=== PATIENT | male | born 1955 | race African-American/Black ===

== ENCOUNTER 2019-09-14 12:37 | Emergency (ER) | payer OTHER ==
[~2019-09-14 12:37] MED LIST: Caclcium Chloride 10% INJ SYR IV ONE; SODIUM CHL 0.9% 250 ML BAG ONE
[2019-09-14] MEDS ORDERED: NA CHLORIDE 0.9% 0 ML ONE (13:16)
[2019-09-14 13:40] LABS: Absolute Lymphocytes (CBC) 3.4 K/uL (0.7-4.9); Basophils % 0.5 % (0-1.3); Lymphocytes % 27.6 % (15.3-44.8); MPV 11.5 fL (7.6-11.3); RBC Red Blood Cell Count 5.13 M/uL (4.33-5.43)
[2019-09-14] MEDS ORDERED: ONDANSETRON 4 MG (ODT) TAB ONE (13:40)
[2019-09-14] MEDS ORDERED: DOPAMINE/D5W 400 MG/250 ML BAG IV ONE ×2 (13:42→17:20)
[2019-09-14] MEDS ORDERED: NA CHLORIDE 0.9% 500 ML ONE ×4 (13:43→17:20)
--- NOTE | 2019-09-14 13:49 | EDPHYS ---
Physician Documentation [facility] Name: Suhas Wong Age: 63 yrs Sex: Male : 1955 Arrival Date: 09/14/2019 Time: 12:40 Bed 3 Private MD: ED Physician Mikie Rowe HPI: 09/14 13:15 This 63 yrs old Black Male presents to ER via EMS with complaints of Abdominal Pain, pm1 Nausea/Vomiting/Diarrhea. 13:15 The patient presents with abdominal pain. Onset: The symptoms/episode began/occurred pm1 this morning. The symptoms do not radiate. Associated signs and symptoms: Pertinent positives: vomiting x 2 and diarrhea x 10 that was not bloody. Watery with food initially. Bloody diarrhea onset in the ER with bowel movement here at bedside, Pertinent negatives: dysuria, fever. The symptoms are described as achy. Modifying factors: The symptoms are alleviated by nothing, the symptoms are aggravated by nothing. Severity of pain: in the emergency department the pain is actually worse. Greater than 10 years ago he had a perforated ulcer. Patient was in the [facility] prior to arrival. Historical: - Allergies: 12:54 No Known Allergies; iw - Home Meds: 12:54 lisinopril 5 mg Oral tab 1 tab once daily [Active]; pravastatin 10 mg oral tab 1 tab iw once daily [Active]; - PMHx: 12:54 Hyperlipidemia; Hypertension; iw - PSHx: 12:54 ulcer; iw - Immunization history:: Adult Immunizations up to date. - Coronavirus screen:: The patient has NOT traveled to [place] in the past 14 days. Proceed with normal triage process as indicated. - Social history:: Smoking status: Patient denies any tobacco usage or history of. - Ebola Screening: : Patient negative for fever greater than or equal to 101.5 degrees Fahrenheit, and additional compatible Ebola Virus Disease symptoms Patient denies exposure to infectious person Patient denies travel to an Ebola-affected area in the 21 days before illness onset No symptoms or risks identified at this time. ROS: 13:15 Constitutional: Negative for fever, chills, and weight loss, Neck: Negative for injury, pm1 pain, and swelling, Cardiovascular: Negative for chest pain, palpitations, and edema, Respiratory: Negative for shortness of breath, cough, wheezing, and pleuritic chest pain. 13:15 Back: Negative for injury and pain, MS/Extremity: Negative for injury and deformity, Skin: Negative for injury, rash, and discoloration. 13:15 Abdomen/GI: Positive for abdominal pain, nausea, vomiting, and diarrhea, Negative for constipation. 13:15 All other systems are negative. Exam: 13:15 Head/Face: Normocephalic, atraumatic. Eyes: Pupils equal round and reactive to light, pm1 extra-ocular motions intact. Lids and lashes normal. Conjunctiva and sclera are non-icteric and not injected. Cornea within normal limits. Periorbital areas with no swelling, redness, or edema. Chest/axilla: Normal chest wall appearance and motion. Nontender with no deformity. No lesions are appreciated. Cardiovascular: Regular rate and rhythm with a normal S1 and S2. No gallops, murmurs, or rubs. Normal PMI, no JVD. No pulse deficits. Respiratory: Lungs have equal breath sounds bilaterally, clear to auscultation and percussion. No rales, rhonchi or wheezes noted. No increased work of breathing, no retractions or nasal flaring. 13:15 Back: No spinal tenderness. No costovertebral tenderness. Full range of motion. Skin: Warm, dry with normal turgor. Normal color with no rashes, no lesions, and no evidence of cellulitis. MS/ Extremity: Pulses equal, no cyanosis. Neurovascular intact. Full, normal range of motion. 13:15 Constitutional: The patient appears alert, awake, non-toxic, well developed, well hydrated, well groomed, well nourished, obviously ill. 13:15 Abdomen/GI: Inspection: abdomen appears normal, Bowel sounds: normal, Palpation: soft, mild abdominal tenderness, in the left lower quadrant, mass, is not appreciated, rebound tenderness, is not appreciated, Gross amount of bright red blood in the bed side commode approximately 500 mL. 13:15 Neuro: Orientation: is normal, Mentation: is normal, Motor: is normal, moves all fours. Vital Signs: 12:40 BP 100 / 68; Pulse 81; Resp 17; Temp 96.5(TE); Pulse Ox 99% ; rb1 12:50 BP 100 / 68; Pulse 80; Resp 16; Pulse Ox 98% on R/A; Weight 80.29 kg; Height 5 ft. 7 iw in. (170.18 cm); Pain 8/10; 13:30 BP 64 / 31; Pulse 103; Resp 14 S; Pulse Ox 98% on R/A; iw 13:40 BP 51 / 34; Pulse 92; Resp 14 S; Pulse Ox 98% on R/A; iw 13:56 BP 73 / 45; Pulse 100; Resp 16; Pulse Ox 99% on R/A; iw 14:13 BP 90 / 55; Pulse 103; Resp 16 S; Pulse Ox 99% ; iw 14:25 BP 77 / 29; Pulse 101; Resp 36; Pulse Ox 99% ; sv 14:53 BP 66 / 49; Pulse 101; Resp 27; Pulse Ox 94% on R/A; sv 15:00 BP 67 / 47; Pulse 99; Resp 26; Pulse Ox 97% on 2 lpm NC; sv 15:05 BP 66 / 28; Pulse 97; Resp 24; Pulse Ox 95% on 2 lpm NC; sv 15:25 BP 75 / 41; Pulse 98; Resp 23; Temp 92.2(A); Pulse Ox 96% on 2 lpm NC; sv 16:00 BP 102 / 81; Pulse 103; iw 16:05 BP 99 / 75; Pulse 110; Resp 25; Pulse Ox 95% on 2 lpm NC; sv 16:15 BP 85 / 63; Pulse 106; Resp 24; Pulse Ox 95% on 2 lpm NC; sv 16:30 BP 82 / 44; Pulse 105; Resp 33; Pulse Ox 94% on 2 lpm NC; sv 16:38 BP 80 / 43; Pulse 106; Resp 27; Pulse Ox 94% on 15% BVM; sv 16:45 BP 64 / 29; Pulse 104; Resp 17; Pulse Ox 100% on 100% FiO2 ETT vent; sv 16:50 BP 74 / 25; Pulse 108; Resp 15; Pulse Ox 100% on 100% FiO2 ETT vent; sv 17:00 BP 69 / 48; Pulse 107; Resp 14; Pulse Ox 96% on 2 lpm NC; sv 17:15 BP 81 / 55; Pulse 107; Resp 14; Pulse Ox 98% on 100% FiO2 ETT vent; sv 17:35 BP 59 / 35; Pulse 105; Resp 16; Pulse Ox 100% on 100% FiO2 ETT vent; sv 17:40 BP 133 / 65; Pulse 104; Resp 18; Pulse Ox 100% on 100% FiO2 ETT vent; sv 17:45 BP 128 / 84; Pulse 92; Resp 18; Pulse Ox 100% on 100% FiO2 ETT vent; sv 12:50 Body Mass Index 27.72 (80.29 kg, 170.18 cm) iw Procedures: 13:49 Central Line: the site was prepped with Betadine, in sterile fashion, a triple lumen rn catheter was inserted, in the right femoral vein, in 1 attempts. placement was verified, by blood return, the site was dressed with Tegaderm, using sterile technique, the patient tolerated the procedure, well. 16:43 Intubation: Ventilated with 100% NRB prior to procedure. O2 saturation prior to pattern finisher was 85 %. Intubated orally using Glidescope with 7.5 mm ETT. Successful on second attempt. Cricoid pressure applied during procedure. Tube secured measured 24 cm at teeth. Placement verified by CO2 detector with (+) color change, auscultating bilateral breath sounds, O2 saturation after procedure was 92 %. Patient tolerated well. MDM: 13:10 Patient medically screened. pm1 13:20 Data reviewed: vital signs. Data interpreted: Pulse oximetry: on room air is 98 %. pm1 Interpretation: normal. 13:47 Counseling: I had a detailed discussion with the patient and/or guardian regarding: the pm1 historical points, exam findings, and any diagnostic results supporting the discharge/admit diagnosis, the need to transfer to another facility, [facility] does not immediately have the required specialist. 13:49 ED course: Pt hypotensive, just began bleeding bright red blood per rectum upon rn arrival, dopamine and uncrossmatched blood started due to hypotension and tachycardia, arranging emergent transfer to [facility] given no GI here. . 15:20 Physician consultation: [facility] ICU [facility] Ronnie was contacted at 15:15, regarding pm1 regarding transfer, patient's condition, Discussed the current labs available at time, CBC and Cr, radiologist impression, current medications administered, and current vital signs. He does not feel the patient is stable enough for transfer and may need surgical evaluation and treatment in the hospital here. Will take the patient once the patient's blood pressure and vital signs have stabilized. 16:34 Physician consultation: [facility] ICU [facility] Setter Trujillo regarding patient's condition, pm1 Improved blood pressure 102/81 and 99/75 after addressing Hypocalcemia, low bicarb level, and additional unit of blood. Dr. Rowe will intubate the patient to protect airway for transfer. Will accept the patient. 17:23 ED course: ETT pulled back 2 cm.. rn 09/14 13:13 Order name: Type And Screen pm1 09/14 13:13 Order name: Basic Metabolic Panel pm1 09/14 13:13 Order name: CBC with Diff pm1 09/14 13:13 Order name: Creatinine for Radiology pm1 09/14 13:13 Order name: Hepatic Function pm1 09/14 13:13 Order name: Lipase 1 09/14 13:42 Order name: CBC with Automated Diff; Complete Time: 14:56 EDCT 09/14 14:09 Order name: CBC with Diff pa 09/14 14:13 Order name: PT-INR rn 09/14 14:13 Order name: Ptt, Activated rn 09/14 14:49 Order name: Manual Differential; Complete Time: 14:56 EDCT 09/14 15:01 Order name: Creatinine (Radiology Only); Complete Time: 15:04 EDCT 09/14 15:17 Order name: Basic Metabolic Panel; Complete Time: 15:18 EDCT 09/14 15:17 Order name: Liver (Hepatic) Function; Complete Time: 15:18 EDCT 09/14 13:13 Order name: CT Abd/Pelvis - IV Contrast Only 1 09/14 14:14 Order name: CT Abd/Pelvis - Without Contrast [facility] 09/14 15:12 Order name: CT; Complete Time: 15:18 EDCT 09/14 15:17 Order name: Lipase; Complete Time: 15:18 EDCT 09/14 16:02 Order name: ABO/RH typing EDCT 09/14 16:02 Order name: Antibody Screen EDCT 09/14 16:02 Order name: ABO/RH no charge; Complete Time: 16:04 EDCT 09/14 17:04 Order name: Chest Single View XRAY 09/14 13:13 Order name: IV Saline Lock; Complete Time: 14:26 pm1 09/14 13:13 Order name: Labs collected and sent; Complete Time: 14:26 pm1 09/14 13:24 Order name: NPO; Complete Time: 13:51 pm1 09/14 13:45 Order name: Transfuse; Complete Time: 14:26 pm1 09/14 15:01 Order name: Transfuse; Complete Time: 15:36 pm1 Administered Medications: 13:10 Drug: NS 0.9% 1000 ml Route: IV; Rate: 1000 ml; Site: right antecubital; iw 14:00 Follow up: Response: No adverse reaction; IV Status: Completed infusion; IV Intake: sv 1000ml 13:23 Not Given (Physician Discretion): Octreotide Infusion (50 mcg/hr) - (Octreotide 500 pm1 mcg, NS 0.9% 500 ml) IV at 50 ml/hr continuous 13:24 Not Given (Physician Discretion): Octreotide 50 mcg IV at calculated rate once pm1 13:45 Drug: Dopamine drip 5 mcg/kg/min - (DOPamine 400 mg, D5W 250 ml) Route: IV; Rate: iw calculated rate; Site: right femoral; 14:46 Follow up: Rate change 25 calculated rate sv 15:00 Follow up: Rate change 30 calculated rate sv 18:18 Follow up: Response: No adverse reaction; IV Status: Infusion continued upon transfer sv 13:48 Drug: ProTONIX 40 mg Route: IVP; Site: right femoral; iw 14:00 Follow up: Response: No adverse reaction sv 13:48 Drug: Zofran 4 mg Route: IVP; Site: right femoral; iw 14:00 Follow up: Response: No adverse reaction sv 13:52 Drug: NS 0.9% 1000 ml Route: IV; Rate: 1000 ml; Site: right femoral; iw 14:30 Follow up: Response: No adverse reaction; IV Status: Completed infusion; IV Intake: sv 1000ml 14:05 Drug: ProTONIX 8 mg/hr Route: IV; Rate: 25 ml/hr; Site: right femoral; ah 18:19 Follow up: Response: No adverse reaction; IV Status: Infusion continued upon transfer sv 14:25 Drug: Vasopressin 0.02 units/min {Note: started at 0.04 units/min.} Route: IV; Rate: sv calculated rate; Site: right femoral; 18:18 Follow up: Response: No adverse reaction; IV Status: Infusion continued upon transfer sv 15:07 Drug: Levophed (4 mg/250 mL D5W 4 mcg/min {Note: started at 10 mcg/min.} Route: IV; sv Rate: calculated rate; Site: right femoral; 15:16 Follow up: Rate change 20 calculated rate sv 15:35 Follow up: Rate change 30 calculated rate sv 18:17 Follow up: Response: No adverse reaction; IV Status: Infusion continued upon transfer sv 15:50 Drug: Calcium Gluconate 2 grams Route: IVPB; Infused Over: 60 mins; Site: right femoral;sv 16:05 Follow up: Response: No adverse reaction; IV Status: Completed infusion; IV Intake: sv 100ml 15:58 Drug: D5W 1000 ml, Sodium Bicarbonate 150 mEq Route: IV; Rate: 150 ml/hr; Site: left sv hand; 18:15 Follow up: Response: No adverse reaction; IV Status: Infusion continued upon transfer sv 16:33 Drug: Ketamine 100 mg Route: IVP; Site: right femoral; sv 17:00 Follow up: Response: No adverse reaction sv 16:34 Drug: Rocuronium 50 mg Route: IVP; Site: right femoral; sv 17:00 Follow up: Response: No adverse reaction sv 17:01 Drug: Zosyn 3.375 grams Route: IVPB; Infused Over: 60 mins; Site: right femoral; sv 18:00 Follow up: Response: No adverse reaction; IV Status: Completed infusion; IV Intake: sv 100ml 17:40 Drug: Calcium Chloride 2 grams Route: IVP; Site: right femoral; sv 18:00 Follow up: Response: No adverse reaction sv Disposition: 09/15 07:01 Co-signature as Attending Physician, Mikie Rowe MD. rn Disposition: 09/14/19 13:48 Transfer ordered to [facility]. Diagnosis is Gastrointestinal hemorrhage, unspecified. - Reason for transfer: Higher level of care. - Accepting physician is [facility]. - Condition is Fair. - Problem is new. - Symptoms have improved. Signatures: Dispatcher [employer] Yolis Holloway RN RN sv Williams, Irene, RN RN iw Nieto, Roman, MD MD rn Barber, Rebecca, RN RN rb1 Marinas, Patrick, NP DORMITORY KEEPER pm1 Jazmin Jacinto RN RN Corrections: (The following items were deleted from the chart) 09/14 18:21 13:48 09/14/2019 13:48 Transfer ordered to [facility]. Diagnosis is Gastrointestinal sv hemorrhage, unspecified. Reason for transfer: Higher level of care. Accepting physician is [facility]. Condition is Fair. Problem is new. Symptoms have improved. pm1
--- NOTE | 2019-09-14 13:49 | ER ---
Nurse's Notes [facility] Name: Suhas Wong Age: 63 yrs Sex: Male : 1955 Arrival Date: 09/14/2019 Time: 12:40 Bed 3 Private MD: Diagnosis: Gastrointestinal hemorrhage, unspecified Presentation: 09/14 12:41 Presenting complaint: EMS states: pt c/o generalized abd pain, vomiting and diarrhea iw since this morning, diarrhea X 10, initially hypotensive at 80's systolic while in [facility]. IV fluids started pressure up to 106 per EMS. 12:51 Transition of care: patient was not received from another setting of care. Onset of iw symptoms was September 14, 2019. Risk Assessment: Do you want to hurt yourself or someone else? Patient reports no desire to harm self or others. Initial Sepsis Screen: Does the patient meet any 2 criteria? No. Patient's initial sepsis screen is negative. Does the patient have a suspected source of infection? No. Patient's initial sepsis screen is negative. 12:51 Method Of Arrival: [facility] iw 12:51 Acuity: ZOEY 3 iw 12:57 Acuity: ZOEY 2 iw 12:57 Care prior to arrival: Medication(s) given: Normal saline infusion, 1.5 L NS zofran 8 iw mg, Fentanyl 75 mcg IVP IV initiated. 18 GA, in the right antecubital area. Historical: - Allergies: 12:54 No Known Allergies; iw - Home Meds: 12:54 lisinopril 5 mg Oral tab 1 tab once daily [Active]; pravastatin 10 mg oral tab 1 tab iw once daily [Active]; - PMHx: 12:54 Hyperlipidemia; Hypertension; iw - PSHx: 12:54 ulcer; iw - Immunization history:: Adult Immunizations up to date. - Coronavirus screen:: The patient has NOT traveled to [place] in the past 14 days. Proceed with normal triage process as indicated. - Social history:: Smoking status: Patient denies any tobacco usage or history of. - Ebola Screening: : Patient negative for fever greater than or equal to 101.5 degrees Fahrenheit, and additional compatible Ebola Virus Disease symptoms Patient denies exposure to infectious person Patient denies travel to an Ebola-affected area in the 21 days before illness onset No symptoms or risks identified at this time. Screenin:30 Abuse screen: Denies threats or abuse. Denies injuries from another. Nutritional iw screening: No deficits noted. Tuberculosis screening: No symptoms or risk factors identified. Fall Risk IV access (20 points). Assessment: 12:45 General: Appears in no apparent distress. comfortable, Behavior is calm, cooperative. iw Pain: Complains of pain in abdomen Pain currently is 7 out of 10 on a pain scale. Neuro: Level of Consciousness is awake, alert, obeys commands, Oriented to person, place, time, situation. Cardiovascular: Denies chest pain, Patient's skin is warm and dry. Respiratory: Respiratory effort is even, unlabored. GI: Abdomen is flat, non-distended, Bowel sounds Abd is soft X 4 quads Reports lower abdominal pain, upper abdominal pain, diarrhea, nausea. Derm: Skin is intact. Musculoskeletal: Range of motion: intact in all extremities. 13:15 Reassessment: pt had a large amount of liquid stool, with bright red blood, approx 500 iw mL, pt placed back in stretcher, BP=52/42 HR=93, Drew INSURANCE CUSTOMER SERVICE SPECIALIST notified. 13:25 Reassessment: NS infusing to RAC. iw 13:30 Reassessment: pt had another large loose BM with bright red blood, approx 300 mL in bed.iw 13:40 Reassessment: set up for central line placement with Dr. Rowe at beside. iw 13:43 Reassessment: 1st unit O neg uncrossed blood started, verified with RAMONITA, RN. iw 13:52 Reassessment: 2nd unit O neg uncrossed blood started to central line, verified with terrell SHIPMAN RN. 13:56 Reassessment: pt transported from ER bed 17 to ER bed 3, with 2 units of blood iw infusing, dopamine infusing, pt BP up to 73/45 , GW=950. 14:00 General: Appears distressed, uncomfortable, Behavior is cooperative, flat. Neuro: Level sv of Consciousness is obeys commands, lethargic, Oriented to person, place. Cardiovascular: Rhythm is sinus tachycardia. Respiratory: Airway is patent Respiratory effort is even, unlabored, Respiratory pattern is regular, symmetrical. GI: Reports diarrhea, bloody stool. Derm: Skin is intact, Skin is pale. 14:16 Reassessment: 1st unit of PRBCs complete, see blood transfusion sheet. sv 14:27 Reassessment: 2nd unit of PRBCs complete, see blood transfusion sheet. sv 15:00 Reassessment: Patient appears in no apparent distress at this time. No changes from sv previously documented assessment. 15:30 Reassessment: 3rd unit of PRBCs of uncrossed blood started, verified with Jazmin BALDERAS. See sv blood transfusion sheet. 16:00 Reassessment: Patient appears in no apparent distress at this time. No changes from sv previously documented assessment. 16:20 Reassessment: Patient and/or family updated on plan of care and expected duration. Pain sv level reassessed. Informed Dr Rowe pt's respiratory effort has increased and is becoming more hypoxic. 16:30 Respiratory: Respiratory effort is even, labored, Respiratory pattern is symmetrical, sv tachypnea. 17:00 Reassessment: Patient appears in no apparent distress at this time. Pt remains sv intubated. 17:35 Reassessment: [facility] here at bedside. sv 17:40 Reassessment: 4th unit of uncrossed PRBCs started and verified with Jazmin BALDERAS. See blood sv transfusion sheet. 17:45 Reassessment: Transfer of care done with Juni BALDERAS with [facility] for the 4th sv unit of PRBC. See blood transfusion sheet. 18:10 Reassessment: Patient appears in no apparent distress at this time. Pt remains sv intubated. Vital Signs: 12:40 BP 100 / 68; Pulse 81; Resp 17; Temp 96.5(TE); Pulse Ox 99% ; rb1 12:50 BP 100 / 68; Pulse 80; Resp 16; Pulse Ox 98% on R/A; Weight 80.29 kg; Height 5 ft. 7 iw in. (170.18 cm); Pain 8/10; 13:30 BP 64 / 31; Pulse 103; Resp 14 S; Pulse Ox 98% on R/A; iw 13:40 BP 51 / 34; Pulse 92; Resp 14 S; Pulse Ox 98% on R/A; iw 13:56 BP 73 / 45; Pulse 100; Resp 16; Pulse Ox 99% on R/A; iw 14:13 BP 90 / 55; Pulse 103; Resp 16 S; Pulse Ox 99% ; iw 14:25 BP 77 / 29; Pulse 101; Resp 36; Pulse Ox 99% ; sv 14:53 BP 66 / 49; Pulse 101; Resp 27; Pulse Ox 94% on R/A; sv 15:00 BP 67 / 47; Pulse 99; Resp 26; Pulse Ox 97% on 2 lpm NC; sv 15:05 BP 66 / 28; Pulse 97; Resp 24; Pulse Ox 95% on 2 lpm NC; sv 15:25 BP 75 / 41; Pulse 98; Resp 23; Temp 92.2(A); Pulse Ox 96% on 2 lpm NC; sv 16:00 BP 102 / 81; Pulse 103; iw 16:05 BP 99 / 75; Pulse 110; Resp 25; Pulse Ox 95% on 2 lpm NC; sv 16:15 BP 85 / 63; Pulse 106; Resp 24; Pulse Ox 95% on 2 lpm NC; sv 16:30 BP 82 / 44; Pulse 105; Resp 33; Pulse Ox 94% on 2 lpm NC; sv 16:38 BP 80 / 43; Pulse 106; Resp 27; Pulse Ox 94% on 15% BVM; sv 16:45 BP 64 / 29; Pulse 104; Resp 17; Pulse Ox 100% on 100% FiO2 ETT vent; sv 16:50 BP 74 / 25; Pulse 108; Resp 15; Pulse Ox 100% on 100% FiO2 ETT vent; sv 17:00 BP 69 / 48; Pulse 107; Resp 14; Pulse Ox 96% on 2 lpm NC; sv 17:15 BP 81 / 55; Pulse 107; Resp 14; Pulse Ox 98% on 100% FiO2 ETT vent; sv 17:35 BP 59 / 35; Pulse 105; Resp 16; Pulse Ox 100% on 100% FiO2 ETT vent; sv 17:40 BP 133 / 65; Pulse 104; Resp 18; Pulse Ox 100% on 100% FiO2 ETT vent; sv 17:45 BP 128 / 84; Pulse 92; Resp 18; Pulse Ox 100% on 100% FiO2 ETT vent; sv 12:50 Body Mass Index 27.72 (80.29 kg, 170.18 cm) iw ED Course: 12:40 Patient arrived in ED. iw 12:45 Maintain EMS IV. Dressing intact. Site clean \T\ dry. Gauge \T\ site: 20G R AC. sv 12:47 Drew Starr NP is PHCP. pm1 12:47 Mikie Rowe MD is Attending Physician. pm1 12:50 Hayde Thomas RN is Primary Nurse. rb1 12:53 Triage completed. iw 12:54 Arm band placed on. iw 13:43 Assisted provider with central line placement. Set up central line tray. Double lumen iw lined placed in right femoral. Line placed by Mikie Rowe MD Placement verified by blood return, Dressed with Tape, Tegaderm, Blood was collected. Patient tolerated well. Before procedure, did Practitioner(s) obtain informed consent? Yes. Was handwashing/sanitizing done immediately prior to procedure? Yes. Was procedure site sterilized? Yes, with chlorhexidine. Was blood aspirated from each lumen? Yes. 14:00 Report received from Kary BALDERAS. sv 14:00 Patient has correct armband on for positive identification. Placed in gown. Bed in low sv position. Side rails up X2. radiation monitor on. Pulse ox on. NIBP on. 14:04 initiated transfer at this time with [facility]. ms 14:09 Primary Nurse role handed off by Hayde Thomas RN sv 14:09 Yolis Calloway RN is Primary Nurse. sv 14:45 Patient moved back from CT. sv 14:49 CT completed. Patient tolerated procedure well. Patient moved back from CT. bq 15:50 Inserted saline lock: 20 gauge in left hand, using aseptic technique. Flushed left hand sv with 5 ml normal saline. 16:40 Assisted provider with intubation using 7.5 mm ETT via oral route. ET tube secured at sv 25cm at the teeth. Set up intubation tray. Intubated by Mikie Rowe MD Placement verified by CXR, CO2 detector w/ + color change, auscultating bilateral breath sounds. 16:51 NGT: inserted 14 Fr. via right nare. other done by Jazmin BALDERAS verified placement of air sv over stomach, to intermittent suction. 18:00 One-on-one care X 240 minutes. sv 18:10 Patient transferred, IV remains in place. intact. sv 18:57 Primary Nurse role handed off by Yolis Calloway RN sv Administered Medications: 13:10 Drug: NS 0.9% 1000 ml Route: IV; Rate: 1000 ml; Site: right antecubital; iw 14:00 Follow up: Response: No adverse reaction; IV Status: Completed infusion; IV Intake: sv 1000ml 13:23 Not Given (Physician Discretion): Octreotide Infusion (50 mcg/hr) - (Octreotide 500 pm1 mcg, NS 0.9% 500 ml) IV at 50 ml/hr continuous 13:24 Not Given (Physician Discretion): Octreotide 50 mcg IV at calculated rate once pm1 13:45 Drug: Dopamine drip 5 mcg/kg/min - (DOPamine 400 mg, D5W 250 ml) Route: IV; Rate: iw calculated rate; Site: right femoral; 14:46 Follow up: Rate change 25 calculated rate sv 15:00 Follow up: Rate change 30 calculated rate sv 18:18 Follow up: Response: No adverse reaction; IV Status: Infusion continued upon transfer sv 13:48 Drug: ProTONIX 40 mg Route: IVP; Site: right femoral; iw 14:00 Follow up: Response: No adverse reaction sv 13:48 Drug: Zofran 4 mg Route: IVP; Site: right femoral; iw 14:00 Follow up: Response: No adverse reaction sv 13:52 Drug: NS 0.9% 1000 ml Route: IV; Rate: 1000 ml; Site: right femoral; iw 14:30 Follow up: Response: No adverse reaction; IV Status: Completed infusion; IV Intake: sv 1000ml 14:05 Drug: ProTONIX 8 mg/hr Route: IV; Rate: 25 ml/hr; Site: right femoral; ah 18:19 Follow up: Response: No adverse reaction; IV Status: Infusion continued upon transfer sv 14:25 Drug: Vasopressin 0.02 units/min {Note: started at 0.04 units/min.} Route: IV; Rate: sv calculated rate; Site: right femoral; 18:18 Follow up: Response: No adverse reaction; IV Status: Infusion continued upon transfer sv 15:07 Drug: Levophed (4 mg/250 mL D5W 4 mcg/min {Note: started at 10 mcg/min.} Route: IV; sv Rate: calculated rate; Site: right femoral; 15:16 Follow up: Rate change 20 calculated rate sv 15:35 Follow up: Rate change 30 calculated rate sv 18:17 Follow up: Response: No adverse reaction; IV Status: Infusion continued upon transfer sv 15:50 Drug: Calcium Gluconate 2 grams Route: IVPB; Infused Over: 60 mins; Site: right femoral;sv 16:05 Follow up: Response: No adverse reaction; IV Status: Completed infusion; IV Intake: sv 100ml 15:58 Drug: D5W 1000 ml, Sodium Bicarbonate 150 mEq Route: IV; Rate: 150 ml/hr; Site: left sv hand; 18:15 Follow up: Response: No adverse reaction; IV Status: Infusion continued upon transfer sv 16:33 Drug: Ketamine 100 mg Route: IVP; Site: right femoral; sv 17:00 Follow up: Response: No adverse reaction sv 16:34 Drug: Rocuronium 50 mg Route: IVP; Site: right femoral; sv 17:00 Follow up: Response: No adverse reaction sv 17:01 Drug: Zosyn 3.375 grams Route: IVPB; Infused Over: 60 mins; Site: right femoral; sv 18:00 Follow up: Response: No adverse reaction; IV Status: Completed infusion; IV Intake: sv 100ml 17:40 Drug: Calcium Chloride 2 grams Route: IVP; Site: right femoral; sv 18:00 Follow up: Response: No adverse reaction sv Intake: 14:00 IV: 1000ml; Total: 1000ml. sv 14:30 IV: 1000ml; Total: 2000ml. sv 16:05 IV: 100ml; Total: 2100ml. sv 18:00 IV: 100ml; Total: 2200ml. sv Output: 17:15 Gastric: 300ml (NGT); Total: 300ml. sv Outcome: 13:48 ER care complete, transfer ordered by . pm1 17:40 Transferred by helicopter to [facility], Transfer form completed. X-rays sent sv w/ patient. Note: Report given to Juni BALDERAS from [facility] 17:40 critical 17:40 Instructed on the need for transfer. 18:21 Patient left the ED. sv Signatures: Yolis Calloway RN SHERRIE sv Catrina Gonzalez Irene, RN RN Kiah Weldon ms Hayde Thomas, RN SHERRIE [facility] Drew Starr, [employer]ICE SPECIALIST pm1 Jazmin Jacinto RN RN Corrections: (The following items were deleted from the chart) 12:58 12:51 Care prior to arrival: None. iw iw 14:21 14:19 Reassessment: NS infusing to RAC, iw iw 15:08 14:25 Vasopressin 0.02 units/min IV at calculated rate in right femoral sv sv 18:09 16:38 BP 80 / 43; Pulse 106bpm; Resp 27bpm; Pulse Ox 94% 2 lpm Nasal Cannula; sv sv : 16:45 BP 64 / 29; Pulse 104bpm; Resp 17bpm; Pulse Ox 100% 2 lpm Nasal Cannula; sv sv : 16:50 BP 74 / 25; Pulse 108bpm; Resp 15bpm; Pulse Ox 100% 2 lpm Nasal Cannula; sv sv
[2019-09-14] MEDS ORDERED: ONDANSETRON 4 MG/2 ML VIAL ONE (13:51)
[2019-09-14] MEDS ORDERED: PANTOPRAZOLE 40 MG INJ ONE (13:51)
[2019-09-14] MEDS ORDERED: NA CHLORIDE 0.9% 1,000 ML ONE ×2 (13:54→15:04)
[2019-09-14] MEDS ORDERED: PANTOPRAZOLE INJ 80 MG in NA CHLORIDE 0.9% 250 ML IV SCH (14:00)
[2019-09-14] MEDS ORDERED: VASOPRESSIN 80 UNIT in NA CHLORIDE 0.9% 250 ML IV PRN (14:13)
[2019-09-14 14:26] LABS: Blood Morphology Comment NOT SEEN (NOT SEEN); Platelet Estimate ADEQ
--- NOTE | 2019-09-14 15:00 | RAD REPORT ---
EXAM DESCRIPTION: CT - Abdomen Pelvis Wo Contrast - 09/14/2019 2:48 pm CLINICAL HISTORY: abd pain Vomiting, diarrhea, acute GI bleed without melena, hypotensive, patient required blood transfusion COMPARISON: No comparisons TECHNIQUE: Axial [address] imaging of the abdomen and pelvis was performed without IV contrast. No IV contrast was given because of allergy, abnormal renal function, patient refusal or physician re quest. No oral contrast. All CT scans are performed using dose optimization technique as appropriate and may include automated exposure control or mA/KV adjustment according to patient size. FINDINGS: No acute lung base finding. No pericardial effusion. Distended, fluid-filled esophagus is present. Clips are present near the GE junction. No mass or wall thickening. No inflammatory strandin g. The liver, spleen and pancreas show no suspicious findings on non-contrast imaging. Gallbladder and b iliary tree are also without suspicious finding. No hydronephrosis or suspicious renal mass. No significant adrenal finding. Isodense renal masses an d pyelonephritis cannot be excluded in the absence of IV contrast. Urinary bladder is fully contracte d. Stomach is not dilated. There is retained food and fluid in the stomach. No gastric wall thickening o r mass. No outlet obstruction seen. Fluid distends the proximal duodenum. Distal duodenum is normal i n diameter. Distended fluid-filled small bowel loops are present from ligament of Treitz to the dista l ileum. Verdugo of the terminal ileum show mild circumferential wall thickening. No dilation of the co amando. No colon wall mass identified. There is no diverticulosis. Mild wall thickening is seen througho ut the colon. No adjacent inflammatory stranding. A discrete mass is not seen. No free air or pneumat osis. No hernia, mass or bulky lymphadenopathy. No suspicious bony findings. IMPRESSION: No free air, free fluid, hematoma or other surgically emergent finding. Mild circumferential wall thickening throughout the colon without mass or focal colon abnormality. Distended but nondilated small bowel from ligament of Treitz to the terminal ileum. No focal gastric abnormality seen. Full assessment is limited is the absence of IV contrast. No specific abnormality as a source for acute GI bleed. A vascular malformation can be occult on CT i ing.
[2019-09-14] MEDS ORDERED: NOREPINEPHRINE 4mg/D5W 250mL 4 MG/250 ML BAG IV ONE ×2 (15:04→17:20)
[2019-09-14 15:10] LABS: ALT/SGPT 44 U/L (12-78); AST/SGOT 120 U/L (15-37); Albumin 2.8 g/dL (3.4-5.0); Alkaline Phosphatase 116 U/L (45-117); BUN Blood Urea Nitrogen 15 mg/dL (7-18); Bicarbonate 15 mmol/L (21-32); Bilirubin Direct 0.1 mg/dL (0-0.2); Bilirubin Total 0.3 mg/dL (0.2-1.0); Glucose Level 277 mg/dL (74-106); Lipase 192 U/L (73-393); Potassium 5.5 mmol/L (3.5-5.1); Protein, Total 5.9 g/dL (6.4-8.2); Sodium Level 144 mmol/L (136-145)
[2019-09-14] MEDS ORDERED: PIPER/TAZO/NS 3.375gm 3.375 GM/100 ML BAG ONE (15:41)
[2019-09-14] MEDS ORDERED: NA BICARB 8.4% 150 MEQ in D5W 1,000 ML IV SCH (16:00)
[2019-09-14] MEDS ORDERED: Calcium Gluconate 9.3 mEq (=2gm)/NS 100 mL IVPB IV ONE ×2 (16:00)
[2019-09-14] MEDS ORDERED: ROCURONIUM 50 MG/5 ML VIAL IV ONE (16:29)
[2019-09-14] MEDS ORDERED: KETAMINE HCL 500 MG/5 ML VIAL ONE (16:29)
[2019-09-14] MEDS ORDERED: NOREPINEPHRINE 4 MG/4 ML VIAL ONE (17:26)
[2019-09-14] MEDS ORDERED: Caclcium Chloride 10% INJ SYR IV ONE (17:41)
--- NOTE | 2019-09-14 18:02 | RAD REPORT ---
EXAM DESCRIPTION: RAD - Chest Single View - 09/14/2019 5:22 pm CLINICAL HISTORY: ET TUBE PLACEMENT COMPARISON: No comparisons TECHNIQUE: AP portable chest image was obtained 09/14/2019 5:22 pm . FINDINGS: Endotracheal tube has been placed. Tip is T4 level top of the aortic arch. This is several cm above the akira. Resuscitation paddles overlie the upper chest and lateral upper left abdomen. N G tube extends below the diaphragm, off the field of view. Lung romo are clear. Heart and vasculature are normal. No measurable pleural effusion and no pneumo thorax. No acute bony abnormality seen. No acute aortic findings suspected. IMPRESSION: Endotracheal tube in good position. No acute cardiopulmonary finding evident.
[2019-09-14 18:58] VITALS: TEMP 92.2
[2019-09-14 19:18] VITALS: O2SAT 100
[2019-09-14 19:21] VITALS: BP 128/84
== END 2019-09-14 18:21 | disposition short-term general hospital (02) ==
LOC: ER 12:37
PROC: 06HM33Z Insertion of Infusion Device into Right Femoral Vein, Percutaneous Approach (ICD-10-PCS; principal; 2019-09-14)
PROC: 0BH17EZ Insertion of Endotracheal Airway into Trachea, Via Natural or Artificial Opening (ICD-10-PCS; 2019-09-14)
PROC: 5A1935Z Respiratory Ventilation, Less than 24 Consecutive Hours (ICD-10-PCS; 2019-09-14)
PROC: 30233N1 Transfusion of Nonautologous Red Blood Cells into Peripheral Vein, Percutaneous Approach (ICD-10-PCS; 2019-09-14)
DX: K92.2 Gastrointestinal hemorrhage, unspecified (principal); I10 Essential (primary) hypertension; E78.5 Hyperlipidemia, unspecified
CPT/HCPCS: 85025; 80048; 36415; 86900 ×2; 86850; 86901 ×2; 80076; 83690; 74176; 71045; 94002; 99285; 36556; 31500; 36430; P9016 ×4; J2405; C9113; J0610; J1265; J2543; J7030; J7040